=== PATIENT | male | born 1980 ===

== ENCOUNTER 2017-03-16 23:46 | Emergency (ER) | payer SELFPAY ==
[2017-03-16 23:56] VITALS: BP 124/74
[2017-03-17] MEDS ORDERED: TORADOL IM ONE (02:04)
--- NOTE | 2017-03-17 02:04 | Emergency Department Report ---
ED Extremity Problem HPI - General Chief complaint: Extremity Injury, Lower Stated complaint: TOE NAIL PAIN Time Seen by Provider: 03/17/17 01:26 Source: patient Mode of arrival: Ambulatory Limitations: No Limitations - History of Present Illness Initial comments: 36-year-old male with no significant past medical history presents of pain to the second right toe 3 days. Patient states he wears steel toed boots and suspects that they have caused injury to his toe. Pain is 5/10 in intensity, constant, worse with palpation. No fever or drainage reported. - Related Data Previous Rx's Medication Instructions Recorded Last Taken Type Bacitracin 1 gm OP BID #1 oint...g. 03/17/17 Unknown Rx Cephalexin [Keflex] 500 mg PO TID 7 Days capsule 03/17/17 Unknown Rx Ibuprofen [Motrin] 800 mg PO Q8HR PRN #30 tablet 03/17/17 Unknown Rx traMADol [Ultram] 50 mg PO Q6HR PRN #20 tablet 03/17/17 Unknown Rx Allergies Allergy/AdvReac Type Severity Reaction Status Date / Time No Known Allergies Allergy Unverified 03/17/17 02:04 ED Review of Systems ROS: Stated complaint: TOE NAIL PAIN Other details as noted in HPI Comment: All other systems reviewed and negative Other: Constitutional: No fevers chills Eyes: No eye pain visual changes ENT: No ear pain or throat pain Neck: Denies pain Respiratory: Denies cough wheezing shortness of breath Cardiovascular: Denies chest pain, palpitations, syncope GI: Denies abdominal pain, nausea, vomiting, diarrhea : Denies dysuria Musculoskeletal: as per hpi Skin: Denies rash, lesions, erythema Neurologic: Denies headache, numbness, weakness Psychiatric: Denies suicidal ideation, hallucinations ED Past Medical Hx - Past Medical History Previous Medical History?: No - Surgical History Past Surgical History?: No - Social History Smoking Status: Never Smoker Substance Use Type: None - Medications Home Medications: Home Medications Medication Instructions Recorded Confirmed Last Taken Type Bacitracin 1 gm OP BID #1 oint...g. 03/17/17 Unknown Rx Cephalexin [Keflex] 500 mg PO TID 7 Days capsule 03/17/17 Unknown Rx Ibuprofen [Motrin] 800 mg PO Q8HR PRN #30 tablet 03/17/17 Unknown Rx traMADol [Ultram] 50 mg PO Q6HR PRN #20 tablet 03/17/17 Unknown Rx ED Physical Exam - General Limitations: No Limitations - Other Other exam information: General: No limitations, patient is alert in no acute distress Head exam: Atraumatic, normocephalic Eyes exam: Normal appearance ENT: Moist mucous membrane, normal oropharynx Neck exam: Normal inspection, full range of motion, no meningismus nontender Respiratory exam: Clear to auscultation bilateral, no wheezes, rales, crackles Cardiovascular: Normal rate and rhythm, normal heart sounds Abdomen: Soft, nondistended, and nontender, with normal bowel sounds, no rebound, or guarding Extremity: Full range of motion normal inspection no deformity. Tenderness along the medial aspect of the second toe. Dark discoloration to the medial toe age. Mild swelling to medial nailbed. No erythema, warmth, or notable drainage. Back: Normal Inspection, full range of motion, no tenderness Neurologic: Alert, oriented x3, cranial nerves intact, no motor or sensory deficit Psychiatric: normal affect, normal mood Skin: Warm, dry, intact ED Course Vital Signs 03/16/17 03/16/17 23:49 23:53 Temperature 97.8 F 98.1 F Pulse Rate 73 88 Respiratory 18 17 Rate Blood Pressure 129/71 124/74 O2 Sat by Pulse 98 99 Oximetry - Reevaluation(s) Reevaluation #1: 03/17/17 02:12 Toradol provided for pain ED Medical Decision Making - Medical Decision Making Patient advised to adjust his foot wear. Foot soaks, topical and oral antibiotic, and that she follow-up for treatment - Differential Diagnosis paronychia, abscess, ingrown toenail, fungal infection Critical Care Time: No Critical care attestation.: If time is entered above; I have spent that time in minutes in the direct care of this critically ill patient, excluding procedure time. ED Disposition Clinical Impression: Ingrown toenail Disposition: DC-01 TO HOME OR SELFCARE Is pt being admited?: No Does the pt Need Aspirin: No Condition: Stable Instructions: Ingrown Nail (ED) Additional Instructions: Follow with any of the podiatrists provided for further treatment. Take medications to continue soaks and treatment as indicated by your discharge instructions. Return if symptoms worsen. You need to wear appropriate shoes that do not cause additional trauma to the toe. Prescriptions: Bacitracin 1 gm OP BID #1 oint...g. Cephalexin [Keflex] 500 mg PO TID 7 Days capsule Ibuprofen [Motrin] 800 mg PO Q8HR PRN #30 tablet PRN Reason: Pain traMADol [Ultram] 50 mg PO Q6HR PRN #20 tablet PRN Reason: Pain Referrals: JAELYN TONY DPM [Staff Physician] - 3-5 Days ELLI REID DPM [Referring] - 3-5 Days KATY LUNA DPM [Referring] - 3-5 Days [facility] [Provider Group] - 3-5 Days Time of Disposition: 02:10
== END 2017-03-17 02:35 | disposition home or self-care (01) ==
LOC: ED 23:46
DX: L60.0 Ingrowing nail (principal)
CPT/HCPCS: 96372; 99282; J1885

== ENCOUNTER 2017-11-06 18:38 | Emergency (ER) | payer SELFPAY ==
[2017-11-06] MEDS ORDERED: TORADOL IM ONE (22:08)
--- NOTE | 2017-11-06 22:12 | Emergency Department Report ---
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 Patient was seen at [facility] and had x-rays and was given Tylenol 3 and muscle relaxants. Patient states no improvement with back pain. Patient states that the pain is sharp and shoots up his back. Patient denies any difficulty ambulating. No past medical history currently takes no medications on a daily basis. MD Complaint: back pain -: days(s) (4) Similar Symptoms Previously: No Place: work Radiation: other Severity scale (0 -10): 10 (up his back) Quality: sharp Consistency: intermittent Improves With: none Worsens With: movement (certain movements) Associated Symptoms: denies other symptoms - Related Data Previous Rx's Medication Instructions Recorded Last Taken Type Bacitracin 1 gm OP BID #1 oint...g. 03/17/17 Unknown Rx Cephalexin [Keflex] 500 mg PO TID 7 Days capsule 03/17/17 Unknown Rx Ibuprofen [Motrin] 800 mg PO Q8HR PRN #30 tablet 03/17/17 Unknown Rx traMADol [Ultram] 50 mg PO Q6HR PRN #20 tablet 03/17/17 Unknown Rx Allergies Allergy/AdvReac Type Severity Reaction Status Date / Time No Known Allergies Allergy Verified 11/06/17 18:47 ED Review of Systems ROS: Stated complaint: BACK PAIN Other details as noted in HPI Comment: All other systems reviewed and negative Constitutional: denies: chills, fever Genitourinary: other (denies any urinary or fecal incontinence) Musculoskeletal: back pain ED Past Medical Hx - Past Medical History Previous Medical History?: No - Surgical History Past Surgical History?: No - Social History Smoking Status: Never Smoker Substance Use Type: None - Medications Home Medications: Home Medications Medication Instructions Recorded Confirmed Last Taken Type Bacitracin 1 gm OP BID #1 oint...g. 03/17/17 Unknown Rx Cephalexin [Keflex] 500 mg PO TID 7 Days capsule 03/17/17 Unknown Rx Ibuprofen [Motrin] 800 mg PO Q8HR PRN #30 tablet 03/17/17 Unknown Rx traMADol [Ultram] 50 mg PO Q6HR PRN #20 tablet 03/17/17 Unknown Rx ED Physical Exam - General Limitations: No Limitations General appearance: alert, in no apparent distress - Head Head exam: Present: atraumatic, normocephalic - Eye Eye exam: Present: EOMI - ENT ENT exam: Present: mucous membranes moist - Respiratory Respiratory exam: Present: normal lung sounds bilaterally. Absent: respiratory distress - Cardiovascular Cardiovascular Exam: Present: regular rate, normal rhythm. Absent: systolic murmur, diastolic murmur, rubs, gallop - GI/Abdominal GI/Abdominal exam: Present: soft, normal bowel sounds - Extremities Exam Extremities exam: Present: full ROM - Back Exam Back exam: Present: full ROM, muscle spasm. Absent: tenderness, CVA tenderness (R), CVA tenderness (L) - Neurological Exam Neurological exam: Present: alert, oriented X3 - Psychiatric Psychiatric exam: Present: normal affect, normal mood - Skin Skin exam: Present: warm, dry, intact, normal color. Absent: rash ED Course Vital Signs 11/06/17 18:47 Temperature 98.8 F Pulse Rate 70 Respiratory 16 Rate Blood Pressure 141/90 O2 Sat by Pulse 99 Oximetry ED Medical Decision Making - Medical Decision Making She has been evaluated by this provider fast track. Discussed the patient we' ll give him a Toradol injection for pain. He is to continue with pain medication and was given to him by [facility] which consisted Tylenol 3 and muscle relaxants. I discussed the patient I will refer him to orthopedist for further evaluation and further testing. Patient verbalized understanding. Critical care attestation.: If time is entered above; I have spent that time in minutes in the direct care of this critically ill patient, excluding procedure time. ED Disposition Clinical Impression: Back pain Qualifiers: Back pain location: low back pain Chronicity: acute Back pain laterality: midline Sciatica presence: without sciatica Qualified Code(s): M54.5 - Low back pain Disposition: TO HOME OR SELFCARE Is pt being admited?: No Does the pt Need Aspirin: No Condition: Stable Instructions: Acute Low Back Pain (ED) Additional Instructions: Continue with current pain medication as prescribed. I highly recommend to follow up with orthopedist as athey may do further evaluation and testing. Referrals: PRIMARY CARE, [Primary Care Provider] - 3-5 Days YAIMA VIDAL MD [Staff Physician] - 3-5 Days [facility] [Provider Group] - 3-5 Days Forms: Work/School Release Form(ED)
[2017-11-06 22:31] VITALS: BP 109/72
== END 2017-11-06 22:34 | disposition home or self-care (01) ==
LOC: ED 18:38
DX: M54.5 Low back pain (principal)
CPT/HCPCS: 96372; 99282; J1885